=== PATIENT | female | born 2005 | race Caucasian/White ===

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

== ENCOUNTER 2023-06-20 16:08 | Emergency (ER) | payer BC, SELFPAY ==
[2023-06-20 16:21] VITALS: BP 118/71; PULSE 86; RESP 20; TEMP 36.7; O2SAT 100
--- NOTE | 2023-06-20 16:26 | ED.ABDPAIN ---
HPI - Abdominal Pain General Chief Complaint: Abdominal Pain Stated Complaint: stomach pain Time Seen by Provider: 06/20/23 16:25 Source: patient, RN notes reviewed and old records reviewed Mode of arrival: ambulatory Limitations: no limitations History of Present Illness HPI narrative: 18-year-old female presents to [facility] with complaints abdominal pain and nausea that started last p.m. Patient seems actual vomiting or diarrhea. Patient denies urinary symptoms you patient denies vaginal discharge or concerns for STDs at this time. Patient denies possibility of . MD elicited complaint: abdominal pain Pertinent past history: none Onset (ago): day(s) (1) Pain Consistency: intermittent Location: RUQ Severity: mild Quality: cramping Radiation: none Migration to: no migration Exacerbating factors: nothing Relieving factors: nothing Related Data Allergies Allergy/AdvReac Type Severity Reaction Status Date / Time sulfamethoxazole Allergy Severe unknown Verified 06/20/23 16:27 trimethoprim Allergy Severe unknown Verified 06/20/23 16:27 Review of Systems Constitutional: Constitutional: Reports no additional constitutional complaints Eyes: Eyes: Reports no additional eye complaints ENT: Reports system reviewed and no additional complaints, except as documented Cardiovascular: Cardiovascular: Reports no additional cardiovascular complaints Respiratory: Respiratory: Reports no additional respiratory complaints Gastrointestinal: Gastrointestinal: Reports as per HPI, Reports abdominal pain, Denies constipation, Denies heartburn, Denies fecal incontinence, Denies diarrhea, Denies loose stools, Reports nausea and Denies vomiting Genitourinary: Genitourinary: Denies abnormal menses, Denies abnormal vaginal bleeding, Denies amenorrhea, Denies metrorrhagia, Denies hematuria, Denies pelvic pain, Denies urinary incontinence, Denies urinary urgency and Denies vaginal discharge Neurologic: Reports system reviewed and no additional complaints, except as documented PMFSH Comments At the time of my signature, I reviewed and agree with the nursing past medical, surgical, social, and family history. There is no relevant family history pertinent to the patient complaint. Exam Const: General: cooperative, healthy appearing, no acute distress and well nourished Nutritional Appearance: well nourished Orientation/consciousness: patient oriented x3 Limitations: no limitations HENMT: Head: normal to inspection and normocephalic Ears: external ears normal, TM's normal bilaterally, mastoids normal and Abnormal EAC present Face/Nose/Sinus: normal facial exam Face and sinus: normal facial exam Mouth: Yes Normal oral and palatal mucosa present, Yes oropharynx normal and Yes moist mucous membranes Throat: posterior oropharynx normal, tonsils normal, uvula midline and no uvular edema Eyes: General: appearance normal, both eyes and all related structures Sclera: sclerae normal Pupils: Equal, round and reactive pupils present Resp: Effort & Inspection: normal respiratory effort, able to speak in complete sentences, no audible wheezes, no cough, no respiratory distress and no retractions Auscultation: clear to auscultation bilaterally, no crackles, no rales, no rhonchi and no wheezes Cardio: Rate: regular rate Rhythm: regular rhythm GI: Inspection: normal to inspection and non-distended GI Palp: Yes abdominal tenderness (RUQ), Yes Soft to palpation, No Hepatomegaly present, No Splenomegaly present and No Rebound tenderness present Percussion: Yes normal to percussion Auscultation: normal bowel sounds : General: No CVA tenderness and Yes no CVA tenderness Back/Spine/Pelvis: Back: no CVA tenderness Skin: General skin exam: normal color and no rashes or lesions noted Neuro: General: patient oriented x3 Cranial nerves: Yes Equal, round and reactive pupils present Psych: Appearance: grossly normal Course Course Emergency Cours
== END 2023-06-20 16:50 | disposition home or self-care (01) ==
PROVIDERS: Emergency Provider Registered Nurse; PCP Pediatrics
DX: N30.90 Cystitis, unspecified without hematuria (principal)
CPT/HCPCS: 81003; 87077; 87086; 87186; 99213; G0463

== ENCOUNTER 2024-03-29 08:42 | Emergency (ER) | payer BC, SELFPAY ==
[2024-03-29 09:06] VITALS: BP 99/63; PULSE 75; RESP 20; TEMP 36.8; O2SAT 97
[2024-03-29 09:36] LABS: EDSTREPNEGPOS1 Negative
--- NOTE | 2024-03-29 10:09 | ED.URI ---
HPI - URI/Sore Throat General Chief Complaint: Upper Respiratory Infection Stated Complaint: sore throat Time Seen by Provider: 03/29/24 09:15 Source: patient, RN notes reviewed and old records reviewed Mode of arrival: ambulatory Limitations: no limitations History of Present Illness HPI Narrative: 19-year-old female to Express Care for complaint sore throat, nasal congestion for 4 days and cough since yesterday. Patient denies difficulty swallowing, shortness of breath, hoarseness ear pain, chest pain, fever, GI complaints, pertinent medical history. Patient able to tolerate fluids by mouth. Patient resting uncomfortably in exam room; appears tired and acutely ill. Respirations even and nonlabored. Patient in no acute distress. Related Data Allergies Allergy/AdvReac Type Severity Reaction Status Date / Time sulfamethoxazole Allergy Severe unknown Verified 06/20/23 16:27 trimethoprim Allergy Severe unknown Verified 06/20/23 16:27 Review of Systems Review of Systems: All systems reviewed & are unremarkable except as noted in HPI and below Constitutional: Constitutional: Reports no additional constitutional complaints Eyes: Eyes: Reports no additional eye complaints ENT: Reports as per HPI, Reports nasal congestion and Reports sore throat Cardiovascular: Cardiovascular: Reports no additional cardiovascular complaints, Denies chest pain and Denies dyspnea Respiratory: Respiratory: Reports no additional respiratory complaints, Reports cough and Denies dyspnea Musculoskeletal: Musculoskeletal: Reports no additional musculoskeletal complaints Neurologic: Reports system reviewed and no additional complaints, except as documented Psychiatric: Psychiatric: Reports no additional psychiatric complaints PMFSH Comments At the time of my signature, I reviewed and agree with the nursing past medical, surgical, social, and family history. There is no relevant family history pertinent to the patient complaint. Exam Const: General: cooperative, no acute distress, alert, ill appearing acutely, tired appearing, uncomfortable and well nourished Nutritional Appearance: well nourished Orientation/consciousness: patient oriented x3 Limitations: no limitations HENMT: Head: normal to inspection Ears: external ears normal and TM abnormal with fluid behind the TM bilateral Face/Nose/Sinus: Normal external nose present, Abnormal mucous membranes and turbinates present boggy bilateral and erythematous bilateral, normal facial exam, No erythema and No edema Face and sinus: normal facial exam, no erythema and no edema Mouth: Yes Normal oral and palatal mucosa present Throat: posterior oropharynx abnormal erythema and postnasal drainage Eyes: General: appearance normal, both eyes and all related structures Neck: Neck: normal visual inspection, full ROM and no meningeal signs Lymphatic: no lymphadenopathy noted and no lymphedema noted Chest: Chest palpation & inspection: normal inspection of the chest Resp: Effort & Inspection: normal respiratory effort and able to speak in complete sentences Auscultation: clear to auscultation bilaterally Cardio: Jugular venous distension: no JVD Rate: regular rate Rhythm: regular rhythm Back/Spine/Pelvis: Cervical Spine: cervical ROM normal Skin: General skin exam: normal color, no rashes or lesions noted and turgor normal Neuro: General: patient oriented x3, gait normal, moves all extremities and no meningeal signs Speech: normal speech Gait exam (Neuro): Normal gait present Extrem: General: normal to inspection, full ROM and capillary refill normal Psych: Appearance: grossly normal and well kempt Course Course Emergency Course: Some parts of this dictation were generated by voice recognition software and may contain typographical and/or grammatical inaccuracies. Level of Care: Express Care Visit Vital Signs Vital signs: Vital Signs Temperature 36.8 C 03/29/24 09:06 Pulse Rate 7
== END 2024-03-29 09:45 | disposition home or self-care (01) ==
PROVIDERS: Emergency Provider Nurse Practitioner Family
DX: J02.9 Acute pharyngitis, unspecified (principal)
CPT/HCPCS: 87081; 87880; 99213; G0463

== ENCOUNTER 2024-07-23 15:15 | Emergency (ER) | payer BC, SELFPAY ==
[2024-07-23 16:18] VITALS: BP 110/73; PULSE 87; RESP 18; TEMP 36.8; O2SAT 100
[2024-07-23 16:47] LABS: EDSTREPNEGPOS1 Negative (Negative)
--- NOTE | 2024-07-23 17:07 | ED.URI ---
HPI - URI/Sore Throat General Chief Complaint: Upper Respiratory Infection Stated Complaint: sore throat, laura Time Seen by Provider: 07/23/24 17:03 Source: patient and RN notes reviewed Mode of arrival: ambulatory Limitations: no limitations History of Present Illness HPI Narrative: Patient presents today with a 4 day history of sore throat, nasal congestion, and cough. Denies shortness of breath or fever. Currently rates her pain 6/10 and has been taking sign next with mild relief. Home COVID testing has been negative. Related Data Home Medications ?Medication ?Instructions ?Recorded ?Confirmed ?Last Taken ?Type No Home Medications 07/23/24 07/23/24 Unknown History Allergies Allergy/AdvReac Type Severity Reaction Status Date / Time sulfamethoxazole Allergy Severe unknown Verified 07/23/24 16:18 trimethoprim Allergy Severe unknown Verified 07/23/24 16:18 Review of Systems Review of Systems: CONSTITUTIONAL: Denies body aches, fever, chills, or sweats. EYES: Denies visual changes, redness, or discharge. ENT: Denies rhinorrhea, or otalgia.+ congestion, sore throat CARDIOVASCULAR: Denies chest pain, palpitations, or edema. RESPIRATORY: Denies dyspnea.+ cough GASTROINTESTINAL: Denies abdominal pain, nausea, vomiting, or diarrhea. GENITOURINARY: Denies dysuria or hematuria. SKIN: Denies rash, itching, or wounds. MUSCULOSKELETAL: Denies back pain, joint pain, or myalgia. NEUROLOGIC: Denies headache, numbness, tingling, or weakness. PSYCH: Denies depression or anxiety. PMFSH Comments At time of signature, I have reviewed and agree with nursing past medical, surgical, social and family history unless otherwise noted. Please see nursing chart for further information. There is no relevant family history pertinent to the presenting complaint Exam Narrative: GENERAL: Mildly ill-appearing, well-nourished, and in no acute distress. HEAD: Normocephalic, atraumatic. EYES: EOMI. No redness or drainage. Conjunctivae normal. ENT: Mucous membranes pink and moist. Nares congestive. No rhinorrhea. TMs normal bilaterally. Throat mildly erythematous without edema or exudate. Uvula midline. NECK: Normal AROM. Supple. No lymphadenopathy. CHEST: No respiratory distress. Clear to auscultation. HEART: Regular rate and rhythm. No murmur appreciated. EXTREMITIES: Normal range of motion. No edema. SKIN: Warm, dry, no rash. Capillary refill normal. Normal skin turgor. NEURO: No focal deficits. Alert and oriented x3. Gait steady. PSYCH: Normal affect. No signs of depression or anxiety. Course Course Level of Care: Express Care Visit Vital Signs Vital signs: Vital Signs Temperature 98.2 F 07/23/24 16:18 Pulse Rate 87 07/23/24 16:18 Respiratory Rate 18 07/23/24 16:18 Blood Pressure 110/73 07/23/24 16:18 Pulse Oximetry 100 07/23/24 16:18 Temperature 98.2 F 07/23/24 16:18 Pulse Rate 87 07/23/24 16:18 Respiratory Rate 18 07/23/24 16:18 Blood Pressure 110/73 07/23/24 16:18 Pulse Oximetry 100 07/23/24 16:18 Reviewed MDM - URI/Sore Throat MDM Narrative Medical decision making narrative: Rapid strep negative. Culture pending. Patient declines testing for COVID or influenza. Symptoms likely viral in etiology. Discussed [id number] medication use and duration of illness. No prescription medications indicated at this time. Anticipatory guidance given. Differential Diagnosis Differential diagnosis: Likely upper respiratory infection, viral infection, influenza, pharyngitis and other (Strep throat, COVID) Lab Data Attestation: I reviewed the patient's lab results. Labs: Lab Results 07/23/24 Range/Units 16:44 POC Grp A Strep Screen Negative (Negative) Critical Care Time Critical Care Time Critical Care Time: No Discharge Plan Discharge Clinical Impression: Upper respiratory infection Qualifiers: URI type: unspecified URI Qualified Code(s): J06.9 - Acute upper respiratory infection, unspecified Patient Disposition: Home, Self-Care Condition: Stable Instructions: Upper Respiratory Infection (DC) Additional Instructions: Your rapid strep swab was negative today at [facility]. You will be notified in a few days if the culture comes back positive for strep, and appropriate antibiotics will be called in for you at that time. Your symptoms are likely due to a viral illness, which is not treated with antibiotics. Viral symptoms can be present for up to 7-10 days. Take Tylenol or ibuprofen for fever or pain. Rest and stay hydrated. Follow up with your PCP in 7 days if symptoms are not improving. Go to the ER immediately if you have any difficulty breathing or swallowing. Patient Language: Welsh Prescriptions: No Action No Home Medications Follow-up/Referrals: PHYSICIAN,PRE ASSEMBLY WIRER [Primary Care Provider] - Time of Disposition: 17:09
== END 2024-07-23 17:11 | disposition home or self-care (01) ==
PROVIDERS: Emergency Provider Nurse Practitioner
DX: J06.9 Acute upper respiratory infection, unspecified (principal)
CPT/HCPCS: 87081; 87880; 99213; G0463

== ENCOUNTER 2024-09-09 15:29 | Emergency (ER) | payer BC, SELFPAY ==
[2024-09-09 15:39] VITALS: BP 107/70; PULSE 78; RESP 18; TEMP 36.9; O2SAT 100
--- NOTE | 2024-09-09 15:54 | ED_ITS ---
HPI - Dental/Oral General Chief complaint: Dental/Oral Stated complaint: DENTAL PAIN/SWELLING Time Seen by Provider: 09/09/24 15:54 Source: patient Mode of arrival: ambulatory Limitations: no limitations History of Present Illness HPI Narrative: 19-year-old female presents with complaint of right lower dental pain. Thinks that a cavity fell out and is causing pain. Has appointment September 14 with her dentist. Afebrile. All systems reviewed and negative except as noted above. Related Data Home Medications ?Medication ?Instructions ?Recorded ?Confirmed ?Last Taken ?Type No Home Medications 07/23/24 07/23/24 Unknown History Allergies Allergy/AdvReac Type Severity Reaction Status Date / Time sulfamethoxazole Allergy Severe unknown Verified 09/09/24 15:48 trimethoprim Allergy Severe unknown Verified 09/09/24 15:48 Review of Systems Review of Systems: CONSTITUTIONAL: Denies fever, chills, or sweats. EYES: Denies visual changes, redness, or discharge. ENT: Denies rhinorrhea, congestion, sore throat, or otalgia. Reports right lower dental pain. CARDIOVASCULAR: Denies chest pain, palpitations, or edema. RESPIRATORY: Denies cough or dyspnea. GASTROINTESTINAL: Denies abdominal pain, nausea, vomiting, or diarrhea. GENITOURINARY: Denies dysuria or hematuria. SKIN: Denies rash or itching. MUSCULOSKELETAL: Denies back pain, joint pain, or myalgia. NEUROLOGIC: Denies headache, numbness, or weakness. PSYCHIATRIC: Denies anxiety or depression. All other systems reviewed are negative, except as documented in HPI. PMFSH Comments At time of signature, agree with nursing past medical, surgical, social and family history. There is no relevant family history pertinent to the presenting complaint. Exam Narrative: GENERAL: This is a well-nourished, well-developed patient, in no apparent distress. HEAD: normocephalic, atraumatic. EYES: PERRL. Sclera clear/white. Vision is grossly intact. EARS: External ears normal NOSE: External nose normal MOUTH: No dental abnormality noted. NECK: Neck supple, non-tender without lymphadenopathy, masses or thyromegaly. CARDIOVASCULAR: Regular rate and rhythm without murmurs, gallops, or rubs. RESPIRATORY: Clear to auscultation. Breath sounds equal bilaterally. No wheezes, rales, or rhonchi. SKIN: warm, Dry, intact with no suspicious lesions or rash, good texture and turgor. NEURO: awake, alert, and oriented to person, place and time. There were no obvious focal neurologic abnormalities. EXTREMITIES: No joint tenderness, effusion, or edema noted. Course Course Level of Care: Express Care Visit Vital Signs Vital signs: Vital Signs Temperature 36.9 C 09/09/24 15:39 Pulse Rate 78 09/09/24 15:39 Respiratory Rate 18 09/09/24 15:39 Blood Pressure 107/70 09/09/24 15:39 Pulse Oximetry 100 09/09/24 15:39 Temperature 36.9 C 09/09/24 15:39 Pulse Rate 78 09/09/24 15:39 Respiratory Rate 18 09/09/24 15:39 Blood Pressure 107/70 09/09/24 15:39 Pulse Oximetry 100 09/09/24 15:39 Oxygen Delivery Room Air 09/09/24 15:41 Reviewed MDM - Dental/Oral MDM Narrative Medical decision making narrative: Will treat patient with antibiotic for dental pain. Patient has appoint with [facility] September 14. Patient is well-appearing, nontoxic. Please be advised this is a medical document. It is intended for [id number] communication. It is written in medical language and may contain unfamiliar abbreviations or verbiage. Medical documents are intended to carry relevant information, facts as evident, and the clinical opinion of the practitioner at the time of the encounter. This report may have been done utilizing a voice recognition system. Attempts have been made to correct errors. However, there may be uncorrected grammatical, spelling, and recognition errors present. The file time of this note does not necessarily represent the time of service. Differential Diagnosis Differential diagnosis: Likely dental caries, toothache, dental abscess and fracture of tooth Discharge Plan Discharge Clinical Impression: Pain, dental Patient Disposition: Home, Self-Care Condition: Stable Instructions: Antibiotic Form, Toothache (ED) Additional Instructions: Take antibiotic as prescribed until gone. Alternate between ibuprofen and Tylenol every 4 hours to treat pain. Follow-up with dentist at scheduled appointment. Patient Language: Lithuanian Prescriptions: New amoxicillin 875 mg tablet 875 mg PO Q12H 10 Days Qty: 20 0RF ibuprofen 600 mg tablet 600 mg PO Q6H PRN (Reason: pain) Qty: 30 0RF No Action No Home Medications Follow-up/Referrals: PHYSICIAN,PRINCIPAL INVESTIGATOR [Primary Care Provider] - Time of Disposition: 15:59
== END 2024-09-09 16:03 | disposition home or self-care (01) ==
PROVIDERS: Emergency Provider Nurse Practitioner Family
DX: K08.89 Other specified disorders of teeth and supporting structures (principal)
CPT/HCPCS: 99213; G0463

== ENCOUNTER 2024-12-28 09:44 | Emergency (ER) | payer BC, SELFPAY ==
[2024-12-28 09:52] VITALS: BP 111/72; PULSE 75; RESP 16; TEMP 36.1; O2SAT 100
[2024-12-28 10:07] LABS: EDUAAPPEAR Cloudy; EDUABILI Negative (Negative); EDUABLOOD 1+ (Negative); EDUACOLOR1 Light/Pale; EDUAGLUCOSE Negative (Negative); EDUAKETONE Negative (Negative); EDUALEUKO 3+ (Negative); EDUANITRATE Positive (Negative); EDUAPH 6.5; EDUAPROTEIN Negative (Negative); EDUASPGRAVITY 1.015; EDUAUROBILI 0.2
--- NOTE | 2024-12-28 10:11 | ED_ITS ---
HPI - Female Genitourinary General Chief complaint: Urogenital-Female Stated complaint: UTI SYMPTOMS Time Seen by Provider: 12/28/24 10:05 Source: patient and RN notes reviewed Mode of arrival: ambulatory Limitations: no limitations History of Present Illness HPI Narrative: 19-year-old female presents [facility] complaining of urinary symptoms for 3 days. Patient reports having increased frequency and low back pain. Patient denies any fevers, abdominal pain, body aches, chills, nausea, vomiting, diarrhea, dysuria. Patient has not taken anything [id number] for symptoms. 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 Patient says she has a history of a neurogenic bladder use to straight cath herself but states she knows longer needs to she is able to void without issues. Related Data Allergies Allergy/AdvReac Type Severity Reaction Status Date / Time sulfamethoxazole Allergy Severe unknown Verified 12/28/24 10:01 trimethoprim Allergy Severe unknown Verified 12/28/24 10:01 Review of Systems Review of Systems: CONSTITUTIONAL: Denies fever, chills, body aches, or sweats. EYES: Denies visual changes, redness, or discharge. ENT: Denies rhinorrhea, congestion, sore throat, or otalgia. CARDIOVASCULAR: Denies chest pain, palpitations, or edema. RESPIRATORY: Denies cough or dyspnea. GASTROINTESTINAL: Denies abdominal pain, nausea, vomiting, or diarrhea. GENITOURINARY: Positive for increased frequency. Negative for hematuria, vaginal discharge, vaginal bleeding, pelvic pain, and dysuria. SKIN: Denies rash or itching. MUSCULOSKELETAL: Positive for low back pain. Negative for joint pain, or myalgia. NEUROLOGIC: Denies headache, numbness, or weakness. PSYCHIATRIC: Denies anxiety or depression. All other systems reviewed are negative, except as documented in HPI. PMFSH Comments At the time of my signature, I reviewed and agree with the nursing past medical, surgical, social, and family history. There is no relevant family history pertinent to the patient complaint. Exam Narrative: GENERAL: This is a well-nourished, well-developed adult, in no apparent distress. They are non ill-appearing, nontoxic appearing. HEAD: normocephalic, atraumatic. EYES: Sclera clear/white. Vision is grossly intact. Conjunctiva normal bilaterally. Extraocular movements intact. EARS: External ears normal,Hearing grossly intact. NOSE: External nose normal THROAT: Mucous membranes moist NECK: Normal range of motion CARDIOVASCULAR: Regular rate and rhythm. Normal S1-S2. No clicks, gallops, rubs, or murmurs. RESPIRATORY: Respiratory rate normal, respiratory effort nonlabored, no respiratory distress. Lungs are clear to auscultation throughout. Lung sounds equal bilaterally. No adventitious lung sounds GASTROINTESTINAL: Abdomen soft, flat, mild tenderness to palpation to suprapubic region, nondistended. Bowel sounds are active. No hepato-splenomegaly, or palpable masses. No guarding or rigidity. No rebound tenderness. SKIN: warm, Dry, intact with no suspicious lesions or rash, good texture and turgor. NEURO: awake, alert, and oriented to person, place and time. There were no obvious focal neurologic abnormalities. EXTREMITIES: No joint tenderness, effusion, or edema noted. BACK: Nontender without deformity. No CVA tenderness. Course Course Emergency Course: Portions of this record may have been created with voice recognition software Level of Care: Express Care Visit Vital Signs Vital signs: Vital Signs Temperature 97 F L 12/28/24 09:52 Pulse Rate 75 12/28/24 09:52 Respiratory Rate 16 12/28/24 09:52 Blood Pressure 111/72 12/28/24 09:52 Pulse Oximetry 100 12/28/24 09:52 Temperature 97 F L 12/28/24 09:52 Pulse Rate 75 12/28/24 09:52 Respiratory Rate 16 12/28/24 09:52 Blood Pressure 111/72 12/28/24 09:52 Pulse Oximetry 100 12/28/24 09:52 MDM - Female Genitourinary MDM Narrative Medical decision making narrative: Urine dipstick showed evidence of urinary tract infection with positive leukocytes, nitrates, and blood. Urine culture pending. Patient is allergic to Bactrim, will treat with cephalexin. Discussed physical exam findings. Advised supportive measures and signs/symptoms to go to the ER. Pt is appropriate for outpt treatment and f/u. Differential Diagnosis Differential diagnosis: Likely urinary tract infection, cystitis and other (Pyelonephritis) Lab Data Attestation: I reviewed the patient's lab results. Labs: Lab Results 12/28/24 Range/Units 10:04 POC Urine Color Light/pale POC Urine Clarity Cloudy POC Urine pH 6.5 POC Ur Specif Elaine 1.015 POC Urine Protein Negative (Negative) POC Ur Glucose (UA) Negative (Negative) POC Urine Ketones Negative (Negative) POC Urine Blood 1+ (Negative) POC Urine Nitrite Positive (Negative) POC Urine Bilirubin Negative (Negative) POC Urine Urobilinogen 0.2 POC U Leukocyte Esteras 3+ (Negative) Discharge Plan Discharge Clinical Impression: Urinary tract infection Qualifiers: Urinary tract infection type: site unspecified Hematuria presence: with hematuria Qualified Code(s): N39.0 - Urinary tract infection, site not specified Patient Disposition: Home Condition: Stable Instructions: Antibiotic Form, Urinary Tract Infection in Women (ED) Additional Instructions: Take the antibiotic as prescribed The urine will be sent of for a culture to identify what type of bacteria is causing your infection. If the culture shows that the antibiotic will not get rid of your infection, you will be notified and a new antibiotic will be called in for you. Increase water intake you will need to follow up with your PCP 3-5 days. Go to the ER for any worsening symptoms, abdominal pain, fevers, nausea, vomiting, or any other concerns Patient Language: Thai Prescriptions: New cephalexin 500 mg capsule 500 mg PO BID 7 Days Qty: 14 0RF Follow-up/Referrals: PHYSICIAN,JUVENILE JUSTICE OFFICER [Primary Care Provider] - Time of Disposition: 10:10
== END 2024-12-28 10:12 | disposition home or self-care (01) ==
DX: N39.0 Urinary tract infection, site not specified (principal)
CPT/HCPCS: 81003; 87077; 87086; 87186; 99213; G0463

== ENCOUNTER 2025-02-22 11:26 | Emergency (ER) | payer BC, SELFPAY ==
--- NOTE | ~2025-02-22 | XR_ITS ---
EXAMINATION: XR ankle LT min 3V DATE: 02/22/2025 12:09 INDICATION: Lateral left ankle pain TECHNIQUE: Anteroposterior, oblique, mortise, and lateral views of the left ankle were obtained. COMPARISON: None. FINDINGS: Alignment is normal. No fracture. Joint spaces are normal. Soft tissues are unremarkable. No left ank le joint effusion. IMPRESSION: 1. Negative left ankle radiographs. Reviewed, dictated and finalized at location A.
[2025-02-22 11:38] VITALS: BP 106/62; PULSE 67; RESP 16; TEMP 36.6; O2SAT 100
--- NOTE | 2025-02-22 12:14 | ED_ITS ---
HPI - Extremity Injury (Lower) General Chief Complaint: Extremity Injury, Lower Stated Complaint: L ANKLE PAIN/SWELLING Time Seen by Provider: 02/22/25 11:50 Source: patient and RN notes reviewed Mode of arrival: ambulatory Limitations: no limitations History of Present Illness HPI Narrative: 20-year-old female Presents [facility] complaining left lateral ankle pain for approximately 6 days. Patient denies any falls or apparent injuries. 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 Patient's has been taking Tylenol or ibuprofen with some relief. Patient denies any numbness, tingling or any other injuries. Patient says she was on ciprofloxacin approximately 2 months ago for UTI. Patient denies any pain to her Achilles. He is able to ambulate on her left foot. Patient denies any significant past medical history. Related Data Allergies Allergy/AdvReac Type Severity Reaction Status Date / Time sulfamethoxazole Allergy Severe unknown Verified 12/28/24 10:01 trimethoprim Allergy Severe unknown Verified 12/28/24 10:01 Review of Systems Review of Systems: CONSTITUTIONAL: Denies fever, chills, or sweats. EYES: Denies visual changes, redness, or discharge. ENT: Denies rhinorrhea, congestion, sore throat, or otalgia. CARDIOVASCULAR: Denies chest pain, palpitations, or edema. RESPIRATORY: Denies cough or dyspnea. GASTROINTESTINAL: Denies abdominal pain, nausea, vomiting, or diarrhea. GENITOURINARY: Denies dysuria or hematuria. SKIN: Denies rash, wound, or itching. MUSCULOSKELETAL: Denies back pain, joint pain, or myalgia. Positive for left ankle pain and swelling. NEUROLOGIC: Denies headache, numbness, or weakness. PSYCHIATRIC: Denies anxiety or depression. All other systems reviewed are negative, except as documented in HPI. PMFSH Comments At the time of my signature, I reviewed and agree with the nursing past medical, surgical, social, and family history. There is no relevant family history pertinent to the patient complaint. Exam Narrative: GENERAL: This is a well-nourished, well-developed adult, in no apparent distress. They are non ill-appearing, nontoxic appearing. HEAD: normocephalic, atraumatic. EYES: Sclera clear/white. Vision is grossly intact. Conjunctiva normal. Extraocular movement intact. EARS: External ears normal Hearing grossly intact. NOSE: External nose normal THROAT: Mucous membranes moist NECK: Neck supple CARDIOVASCULAR: Regular rate and rhythm RESPIRATORY: Respiratory rate normal, respiratory effort nonlabored, no respiratory distress NEURO: awake, alert, and oriented to person, place and time. There were no obvious focal neurologic abnormalities. EXTREMITIES: Left ankle: No obvious deformity. Mild swelling the left lateral ankle with slight bruising. Mild tenderness through full range of motion. Tenderness to palpation to left lateral ankle. Capillary refill less than 3 seconds. Left pedal Pulse 2 +palpable. Normal sensation. Neurovascular status intact distal injury. Patient able to wiggle her toes. Negative Fulton's test. BACK: Nontender without deformity. Course Course Emergency Course: Portions of this record may have been created with voice recognition software Level of Care: Express Care Visit Vital Signs Vital signs: Vital Signs Temperature 97.8 F 02/22/25 11:38 Pulse Rate 67 02/22/25 11:38 Respiratory Rate 16 02/22/25 11:38 Blood Pressure 106/62 02/22/25 11:38 Pulse Oximetry 100 02/22/25 11:38 Temperature 97.8 F 02/22/25 11:38 Pulse Rate 67 02/22/25 11:38 Respiratory Rate 16 02/22/25 11:38 Blood Pressure 106/62 02/22/25 11:38 Pulse Oximetry 100 02/22/25 11:38 Reviewed MDM - Extremity Injury (Lower) MDM Narrative Medical decision making narrative: X-ray left ankle shows no evidence of fracture or acute findings. Likely left ankle sprain. Negative Fulton's test, low suspicion of Achilles injury. Offered patient Antony wrap and she said she has not at home, she has a ankle splint that she has been wearing. Discussed physical exam findings. Advised supportive measures and signs/symptoms to go to the ER. Pt is appropriate for outpt treatment and f/u. Differential Diagnosis Differential diagnosis: Likely ankle sprain and strain and other (Achilles tendon rupture, Achilles tendinitis, tendinitis, ankle fracture, foot fracture) Imaging Data Radiologist's impression: ITS Impressions Ankle X-Ray 02/22/25 12:19 IMPRESSION: 1. Negative left ankle radiographs. Critical Care Time Critical Care Time Critical Care Time: No Discharge Plan Discharge Clinical Impression: Ankle pain, left Qualifiers: Chronicity: acute Qualified Code(s): M25.572 - Pain in left ankle and joints of left foot Patient Disposition: Home Condition: Stable Instructions: Ankle Sprain (ED) Additional Instructions: The x-ray left ankle is negative for any fracture or acute findings. Rest and elevate the leg; bear weight as tolerated Apply ice 15-20 minute intervals several times a day Keep it wrapped with ANTONY or use a soft ankle splint Motrin 600mg -800mg every 6-8 hours, alternate with Tylenol 1000mg every 6-8 hours as needed Follow up with your primary care provider or an orthopedist in 1-2 weeks especially pain persists. Patient Language: Georgian Prescriptions: No Action cephalexin 500 mg capsule 500 mg PO BID 7 Days Qty: 14 0RF ciprofloxacin HCl [Cipro] 250 mg tablet 250 mg PO Q12H 3 Days Qty: 6 0RF Follow-up/Referrals: PHYSICIAN,BACK CLOSER [Primary Care Provider] - Reinier Chapman MD [Physician] - Time of Disposition: 12:33
== END 2025-02-22 12:38 | disposition home or self-care (01) ==
DX: M25.572 Pain in left ankle and joints of left foot (principal)
CPT/HCPCS: 73610; 99213; G0463

== ENCOUNTER 2025-04-14 15:58 | Emergency (ER) | payer BC, SELFPAY ==
--- NOTE | 2025-04-14 16:00 | ED.UPPEXIN ---
HPI - Extremity Injury (Upper) General Stated Complaint: left should sprain checked Time Seen by Provider: 04/14/25 16:42 Source: patient and RN notes reviewed Mode of arrival: ambulatory Limitations: no limitations History of Present Illness HPI narrative: 20-year-old female presents with concern for left shoulder pain. 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 She reports she was the emergency room and was evaluated and diagnosed with a sprained shoulder. However she forgot to get a work note. Reports she is scheduled off for the next 3 days. She was prescribed ibuprofen has been using ice. MD complaint: injury to: left and shoulder Related Data Home Medications ?Medication ?Instructions ?Recorded ?Confirmed ?Last Taken ?Type ibuprofen 600 mg tablet mg 04/14/25 Unknown History Allergies Allergy/AdvReac Type Severity Reaction Status Date / Time sulfamethoxazole Allergy Severe unknown Verified 04/14/25 16:11 trimethoprim Allergy Severe unknown Verified 04/14/25 16:11 Review of Systems Review of Systems: CONSTITUTIONAL: Denies malaise, chills, sweats, or fever. SKIN: Denies rash or itching, open skin, laceration, abrasion, redness, warmth, swelling. MUSCULOSKELETAL: Reports left shoulder pain NEUROLOGIC: Denies numbness, weakness All systems reviewed & are unremarkable except as noted in HPI and below PMFSH Comments At time of signature, agree with nursing past medical, surgical, social and family history. There is no relevant family history pertinent to the presenting complaint Exam Narrative: GENERAL: Well-appearing, well-nourished, and in no acute distress. HEAD: Normocephalic, atraumatic. EYES: PERRLA, conjunctivae clear NECK: Supple. CHEST: Speaks in full sentences. No respiratory distress. HEART: Regular rate and rhythm. Normal and equal peripheral pulses. EXTREMITIES: Left upper extremity has grossly normal strength and sensation, grossly normal range of motion. No edema or ecchymosis. Skin warm, dry, pink. Capillary refill less than 3 seconds. SKIN: Warm, dry, no rash. NEURO: Alert and oriented x3. PSYCH: Normal mood and affect Course Course Emergency Course: Patient is aware of diagnosis, understands and agrees to treatment plan. Anticipatory guidance given. Patient agrees to follow-up as directed and is aware of reasons to seek care at the emergency department. Portions of this record may have been created with voice recognition software Level of Care: Express Care Visit Vital Signs Vital signs: Reviewed. MDM - Extremity Injury (Upper) MDM Narrative Medical decision making narrative: Patients pain is consistent with musculoskeletal etiology. No signs of neurological or vascular compromise on exam. Compartments and tissues are soft without signs of compartment syndrome. Pain is felt appropriate for further evaluation on an outpatient basis. Critical Care Time Critical Care Time Critical Care Time: No Discharge Plan Discharge Clinical Impression: Left shoulder pain Patient Disposition: Home Condition: Stable Instructions: Shoulder Sprain (ED) Patient Language: Saudi Arabian Prescriptions: No Action cephalexin 500 mg capsule 500 mg PO BID 7 Days Qty: 14 0RF ciprofloxacin HCl [Cipro] 250 mg tablet 250 mg PO Q12H 3 Days Qty: 6 0RF Follow-up/Referrals: UNKNOWN,DOCTOR [Primary Care Provider] Stand Alone Forms: Work/School Release IP Time of Disposition: 16:49
--- OUTSIDE RECORDS SUMMARY | 2025-04-14 16:00 | XMS_ITS | Encounter Summary ---
Author Organization [facility] [employer] Address [address] [place] [address] Care Team Providers Care Phototypesetting Equipment Monitor Name Role Phone Jeremías Sparks MD Primary Care Provider [phone] Reason for Visit * Reason Onset Date Comments Letter for School or Work 03/10/2017 Encounter Details Date Type Department Care Team (Late st Contact Info) Description 03/10/2017 Telephone [facility] Pediatrics - Endocrinology [address] [place] [id number] Donald Sainz MD [address] [place] [phone] Letter for School or Work Social History Tobacco Use Types Packs/Day Years Used Date Smoking Tobacco: Never Alcohol Use Standard Drinks/Week Comments No 0 (1 standard drink = 0.6 oz pur e alcohol) Comments No Sex and Gender Information Value Date Recorded Sex Assigned at Not on file 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 Mom is requesting a care plan be faxed to school, states pt takes Lantus nightly, no insulin at meals, only advised to test bg once daily. Will fax to [phone], and will update it if need. Mom reports it is difficulty to get pt to test bg, they hope Dr Alistair can talk some sense into her regarding taking care of her diabetes. documented in this encounter Plan of Treatment Not on file documented as of this encounter Visit Diagnoses Not on filedocumented in this encounter Care Teams Phototypesetting Equipment Monitor Relationship Specialty Start Date End Date Jeremías Sparks MD [address] [place], [place] [phone] PCP - General 02/14/11 documented as of this encounter
--- OUTSIDE RECORDS SUMMARY | 2025-04-14 16:00 | XMS_ITS | Encounter Summary ---
Author Organization [facility] [employer] Address [address] [place] [address] Care Team Providers Care Return Agent Airport Name Role Phone Jeremías Sparks MD Primary Care Provider [phone] Reason for Visit * Reason Onset Date Comments MEDICATION REFILL 08/05/2016 Encounter Details Date Type Department Care Team (Late st Contact Info) Description 08/05/2016 Refill [facility] Pediatrics - Endocrinology [address] [place] [id number] Donald Sainz MD [address] [place] [address] MEDICATION REFILL Social History Tobacco Use Types Packs/Day Years Used Date Smoking Tobacco: Never Alcohol Use Standard Drinks/Week Comments No 0 (1 standard drink = 0.6 oz pur e alcohol) Comments No Sex and Gender Information Value Date Recorded Sex Assigned at Not on file 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
--- OUTSIDE RECORDS SUMMARY | 2025-04-14 16:00 | XMS_ITS | Encounter Summary ---
Author Organization [facility] [employer] Address [address] [place] [address] Care Team Providers Care Academic Advisor Name Role Phone Jeremías Sparks MD Primary Care Provider [phone] Reason for Visit * Reason Onset Date Comments General 02/18/2018 Encounter Details Date Type Department Care Team (Late st Contact Info) Description 02/18/2018 Telephone [facility] Pediatrics - Diabetes [facility] [address] [place] [address] Kamar Cox APRN-METAL BED ASSEMBLER [address] [place] [address] General Social History Tobacco Use Types Packs/Day Years Used Date Smoking Tobacco: Never Smokeless Tobacco: Never Alcohol Use Standard Drinks/Week Comments No 0 (1 standard drink = 0.6 oz pur e alcohol) Comments No Sex and Gender Information Value Date Recorded Sex Assigned at Not on file 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 We sent rx on 02/12/18, [facility] by [facility], mom to call [facility]. They joanna have 5 left. Mom to call if she needs a verbal refill. documented in this encounter Plan of Treatment Not on file documented as of this encounter Visit Diagnoses Not on filedocumented in this encounter Care Teams Academic Advisor Relationship Specialty Start Date End Date Jeremías Sparks MD [address] [place] [address] PCP - General 02/14/11 documented as of this encounter
--- OUTSIDE RECORDS SUMMARY | 2025-04-14 16:00 | XMS_ITS | Encounter Summary ---
Author Organization [facility] [employer] Address [address] [place] [address] Care Team Providers Care Barge Worker Name Role Phone Jeremías Sparks MD Primary Care Provider [phone] Reason for Visit * Reason Onset Date Comments Refill Request 01/13/2017 Please refill La ntus. Mother would like to know it they can try the Lantus Pen - Please call in to [facility] Encounter Details Date Type Department Care Team (Late st Contact Info) Description 01/13/2017 Telephone [facility] Pediatrics - Diabetes Mgmt [address] [place] [phone] Donald Sainz MD [address] [place] [phone] Refill Request (Please refill Lantus. 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
--- OUTSIDE RECORDS SUMMARY | 2025-04-14 16:00 | XMS_ITS | Encounter Summary ---
Author Organization [facility] [employer] Address [address] [place] [address] Care Team Providers Care Finisher [employer] Name Role Phone Jeremías Sparks MD Primary Care Provider Reason for Visit * Reason Onset Date Comments MEDICATION REFILL 03/10/2017 Encounter Details Date Type Department Care Team (Late st Contact Info) Description 03/10/2017 Refill [facility] Pediatrics - Endocrinology [address] [place] [phone] Donald Sainz MD [address] [place] [id number] MEDICATION REFILL Social History Tobacco Use Types Packs/Day Years Used Date Smoking Tobacco: Never Alcohol Use Standard Drinks/Week Comments No 0 (1 standard drink = 0.6 oz pur e alcohol) Comments No Sex and Gender Information Value Date Recorded Sex Assigned at Not on file Legal Sex Female 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
--- OUTSIDE RECORDS SUMMARY | 2025-04-14 16:01 | XMS_ITS | Clinical Summary ---
Author Organization [employer] [facility] Address [address] [place] [address] Care Team Providers Care Master Steam Yacht Name Role Phone Jeremías Sparks MD Primary Care Provider [phone] Source Comments [facility],non-owned Affiliates and Associated Physician Practices is amultiple site organization consisting of ambulatory clinics and hospital sitesin [place], [place], [place] and [place]. This disclosure is being madepursuant to the Care Everywhere program and may not contain all information available regarding this patient. Last updated 18.[employer] Allergies Active Allergy Reactions Criticality Noted Date Comments Bactrim Unknown 10/31/2009 Medications * This document contains information received from the source organization and may not represent a complete record from that organization. * Be aware that medications may not be up to date on this document. Alwaysverify current medications with the patient. acetone,urine, (KETOSTIX) strip Use as needed (use when blood sugar is greater than 250 or when ill. ) 100 Strip 3 6 Active methylphenidate CR 54 MG tablet TK 1 T PO QD 0 6 Active BD INSULIN SYRINGE ULTRAFINE 31G X 15/64 0.3 ML syringeIndication s:Hyperglycemia,C hemotherapy-induc ed diabetes mellitus (HCC) Please give 6 mm syringe with 1/2 unit markings. Use for injections once daily. 100 Each 8 Active GLUCAGON EMERGENCY injectionIndicati ons:Hyperglycemia ,Chemotherapy-ind uced diabetes mellitus (HCC) Inject 1 mg into muscle as needed 2 kit 2 0 Active insulin glargine (LANTUS SOLOSTAR) pen INJECT 11 UNITS AT BEDTIME OR DIRECTED 15 mL 4 0 Active Insulin Pen Needle (BD PEN NEEDLE PERICO U/F) 32G X 4 MM MISC Use 1 syringe 4 times daily 200 Each 11 0 Active cetirizine (ZYRTEC) 10 MG tablet TK 1 T PO QD 9 Active nitrofurantoin macrocrystal (MACRODANTIN) 100 MG capsule Take 1 capsule by mouth at bedtime 30 capsule 11 0 Active blood glucose (Quantum4D CONTOUR NEXT TEST) test strip Use to test blood sugar 5-9 times daily 600 strip 3 1 Active Blood Glucose Monitoring Suppl (Intervention Insights NEXT EZ MONITOR) w/Device KIT Use 1 Each as directed Use to test blood sugar 5-9 times daily 1 kit 1 Active Microlet Lancets MISCIndications:H yperglycemia Use 1 Each as directed To check blood sugars 5-7 times daily 600 Each 3 1 Active oxybutynin CR 24hr (DITROPAN XL) 15 MG tablet Take 1 (one) tablet by mouth once daily 90 tablet 1 Active Active Problems Patient Care Coordination No te Formatting of this note migh t be different from the original. Diagnosis: Malignant sacrococcygeal teratoma, germ cell Date of Last therapy: 05/20/05 Problem Noted Date Diagnosed Date DM (diabetes mellitus), secondary 10/15/2015 Hyperglycemia 03/17/2012 Overview (03/08/2014): hyperglycemia of uncertain cause, presumed to be chemotherapy-related. We first saw her for this 03/17/12. She had had a mildly elevated blood glucose on her annual CMP at [facility], and in follow-up on 03/12/12, her fasting blood glucose was 123 and hemoglobin A1c 6.6%. Urinary symptoms were hard to assess, given her distant history of a pelvic tumor, though she had had no glycosuria or ketonuria. At our visit on 03/17/12, C-peptide was 0.5, fasting blood glucose 123, hemoglobin A1c 6.7%, and GAD65 and IA2 autoantibodies were negative. In 06/07, her hemoglobin A1c was 7.0% and she had a fasting blood glucose of 129 in 07/07, when she was started on once-daily Lantus injections. She has done well since. She presented with anuria at age 1 and was found to have a sacro-coccygeal teratoma. Parents recall she was treated with bleomycin, cis-platin, and etoposide acutely, and then carbo-platin after surgical removal. All therapy was completed 05/18/2005. There has been no evidence of recurrence, but she has a neurogenic bladder requiring self-catheterization 5 times daily (in addition to urinating frequently), and she also requires daily laxative for normal bowel movements. Assessment & Plan (03/09/2014 9:36 AM CDT): 1) no changes 2) continue current therapies 3) return in [address] Sainz Carcinoma of sacrococcygeal region 10/20/2009 Teratoma 10/20/2009 Teratoma of sacrum Hearing loss Otitis media Neurogenic bladder Pyelonephritis Chemotherapy-induced diabetes mellitus Resolved Problems Problem Noted Date Diagnosed Date Resolved Date UTI (urinary tract infection) 04/18/2016 05/02/2016 UTI (urinary tract infection) 07/24/2015 08/07/2015 Immunizations Immunization Administration Dates Next Due INFLUENZA VACCINE, QUADR. (F LUZONE; FLULAVAL; FLUARIX; AFLURIA QUADRIVALENT; 6MO+), 0.5 ML (IIV4) 04/23/2020 Family History Medical History Relation Name Comments Other - Endocrine Father pre-DM Cancer Maternal Grandfather colon c ancer/leukemia Depression Mother ?30 Cancer Other aunt lung Cancer Paternal Grandfather lung Relation Name Status Comments Father Maternal Grandfather Mother Other aunt Paternal Grandfather Social History Tobacco Use Types Packs/Day Years Used Date Smoking Tobacco: Never Smokeless Tobacco: Never Tobacco Cessation:Counseling Given: No Alcohol Use Standard Drinks/Week Comments No 0 (1 standard drink = 0.6 oz pur e alcohol) Comments No Sex and Gender Information Value Date Recorded Sex Assigned at Not on file Legal Sex Female 5:42 AM CUSTOMS COMPLIANCE ANALYST Gender Identity Not on file Sexual Orientation Not on file Last Filed Vital Signs Vital Sign Reading Time Taken Comments Blood Pressure 100/70 07/02/2020 1:01 PM CUSTOMS COMPLIANCE ANALYST Pulse 92 06/29/2020 1:17 PM CUSTOMS COMPLIANCE ANALYST Temperature 36.5 C (97.7 F) 06/29/2020 1:17 PM CUSTOMS COMPLIANCE ANALYST Respiratory Rate 16 06/29/2020 1:17 PM CUSTOMS COMPLIANCE ANALYST Oxygen Saturation 100% 06/29/2020 1:17 PM CUSTOMS COMPLIANCE ANALYST Inhaled Oxygen Concentration - - Weight 56.7 kg (125 lb) 07/02/2020 1:01 PM CUSTOMS COMPLIANCE ANALYST Height 173 cm (5' 8.11) 07/02/2020 1:01 PM CUSTOMS COMPLIANCE ANALYST Body Mass Index 18.94 07/02/2020 1:01 PM CUSTOMS COMPLIANCE ANALYST Plan of Treatment Health Maintenance Due Date Last Done Comments HIV SCREENING 2018 HPV VACCINE (1 - 3-dose series) 2018 CHLAMYDIA/GONORRHEA SCREENING 2019 MENINGOCOCCAL (Group B) VACCINE SHARED DECISION-MAKING (1 of 2 - Standard) 2019 DIABETES-HGB A1C 10/10/2020 04/12/2020, , 07/01/2019, Additional history exists HEPATITIS C SCREENING 01/14/2021 DIABETES-FOOT EXAM WITH MONOFILAMENT 2021 DIABETES-SERUM CREATININE 05/10/20212019, 04/12/2020, 07/01/2019, Additional history exists DTAP/TDAP/TD VACCINES (1 - Tdap) 2022 HEPATITIS B VACCINE (1 of 3 - 19+ 3-dose series) 2022 DEPRESSION SCREENING 07/27/2024 DIABETES - URINE PROTEIN SCREENING 07/27/2024 05/10/2020, 08/22/2019, 03/16/2019, Additional history exists COVID-19 VACCINE (1 - season) 2025 INFLUENZA VACCINE (#1) 2025 04/23/2020 ZOSTER VACCINE (1 of 2) 2053 HIB VACCINE Aged Out No longer eligi ble based on patient's age to complete this topic MENINGOCOCCAL GROUPS A/C/Y/W VACCINE Aged Out No longer eligible based on patient's age to complete this topic PNEUMOCOCCAL VACCINE Aged Out No long er eligible based on patient's age to complete this topic Procedures Procedure Name Priority Date/Time Associated Diagnosis Comments PROTEIN CREATININE RATIO URINE RANDOM PNL Routine 05/10/2020 11:47 AM CDT Carcinoma of sacrococcygeal region COMPREHENSIVE METABOLIC PANEL Routine 05/10/2020 11:18 AM CDT Carcinoma of sacrococcygeal region Neurogenic dysfunction of the urinary bladder Neurogenic bladder Pyelonephritis Hyperglycemia DM (diabetes mellitus), secondary HEMOGLOBIN A1C - POCT INTERFACED Routine 04/12/2020 9:15 AM CDT from Last 3 Months or Most Recently Relevant to Health Maintenance Results * (ABNORMAL) PROTEIN CREATININE RATIO URINE RANDOM PNL (05/10/2020 11:47 AM CDT) Protein Urine 16.6(H) <=14 mg/dL 05/10/2020 12:35 PM CDT [facility] Creatinine Urine 171.93 mg/dL 05/10/2020 12:35 PM T [facility] Protein/Creatin ine Ratio Urine 0.10(H) <0.10 05/10/2020 12:35 PM T [facility] Urine URINE SPECIMEN OBTAINED BY CLEAN CATCH PROCEDURE / Unknown Collection / Unknown 05/10/2020 11:47 AM CDT 05/10/2020 11:51 AM CDT us Bindu Rivera MD LAB - URINE CHEMISTRY ORDERABLES Final Result Performing Organization Address City/State/[facility] Co de Phone Number [facility] [place] [address] * (ABNORMAL) COMPREHENSIVE METABOLIC PANEL (05/10/2020 11:18 AM CDT) Glucose 137(H) 70 - 105 mg/dL 05/10/2020 1:04 PM CDT [facility] Sodium 138 136 - 145 mmol/L 05/10/2020 1:04 PM CDT [facility] Potassium 4.0 3.5 - 5.1 mmol/L 05/10/2020 1:04 PM CDT [facility] Chloride 106 98 - 107 mmol/L 05/10/2020 1:04 PM CDT [facility] CO2 26 20 - 28 mmol/L 05/10/2020 1:04 PM CDT [facility] Calcium 9.18 9.08 - 10.48 mg/dL 05/10/2020 1:04 PM CDT [facility] Anion Gap 6 5 - 20 mmol/L 05/10/2020 1:04 PM CDT [facility] BUN 12.6 5.3 - 18.7 mg/dL 05/10/2020 1:04 PM [facility] Creatinine 0.74 0.61 - 1.07 mg/dL 05/10/2020 1:04 PM [facility] Alkaline Phosphatase 72(L) 100 - 390 U/L 05/10/2020 1:04 PM T [facility] ALT 11 8 - 65 U/L 05/10/2020 1:04 PM T [facility] AST 13 3 - 35 U/L 05/10/2020 1:04 PM [facility] Protein Total 7.6 6.3 - 8.2 gm/dL 05/10/2020 1:04 PM [facility] Albumin 4.6 3.3 - 4.9 gm/dL 05/10/2020 1:04 PM [facility] Bilirubin Total 0.4 0.3 - 1.2 mg/dL 05/10/2020 1:04 PM [facility] eGFR by MDRD 05/10/2020 1:04 PM [facility] Comment: eGFR calculations are not performed for children under 18 years old. eGFR by MDRD 05/10/2020 1:04 PM [facility] Comment: eGFR calculations are not performed for children under 18 years old. Blood BLOOD SPECIMEN / Unknown Lab Venipuncture / Unknown 05/10/2020 11:18 AM CDT 05/10/2020 12:27 PM CDT us Bindu Rivera MD LAB - CHEMISTRY ORDERABLES Final Result Performing Organization Address City/State/[facility] Co de Phone Number [facility] [address] [place] [address] * (ABNORMAL) HEMOGLOBIN A1C - POCT INTERFACED (04/12/2020 9:15 AM CDT) Hemoglobin A1C POCT 6.2(H) 3.4 - 6.1 % 04/12/2020 9:23 AM T [facility] Estimated Average Glucose 131 mg/dL 04/12/2020 9:23 AM T [facility] Blood BLOOD SPECIMEN / Unknown 04/12/2020 9:15 AM CDT 04/12/2020 9:23 AM CDT Donald Sainz MD LAB - POINT OF CARE ORDERABL ES Final Result [facility] [place] [address] from Last 3 Months or Most Recently Relevant to Health Maintenance Insurance ANTHEM ANTHEM ANTHEM Care Teams Master Steam Yacht Relationship Specialty Start Date End Date Jeremías Sparks MD [address] [address] PCP - General 02/14/11
--- OUTSIDE RECORDS SUMMARY | 2025-04-14 16:01 | XMS_ITS | Encounter Summary ---
Author Organization [facility] Address [address] [place] [address] Care Team Providers Care Business Developer Name Role Phone Jeremías Sparks MD Primary Care Provider [phone] Reason for Visit * Reason Comments Refill Request Encounter Details Date Type Department Care Team (Late st Contact Info) Description 11/12/2019 Refill [facility] Pediatrics - Diabetes Mgmt [address] [place] [id number] Donald Sainz MD [address] [place] [id number] Refill Request Social History Tobacco Use Types Packs/Day Years Used Date Smoking Tobacco: Never Smokeless Tobacco: Never Alcohol Use Standard Drinks/Week Comments No 0 (1 standard drink = 0.6 oz pur e alcohol) Comments No Sex and Gender Information Value Date Recorded Sex Assigned at Not on file Legal Sex Female 5:42 AM DIRECTOR OF CHANNEL MARKETING Gender Identity Not on file Sexual Orientation Not on file documented as of this encounter Plan of Treatment Not on file documented as of this encounter Visit Diagnoses Not on filedocumented in this encounter Care Teams Business Developer Relationship Specialty Start Date End Date Jeremías Sparks MD [address] [address] PCP - General 02/14/11 documented as of this encounter
--- OUTSIDE RECORDS SUMMARY | 2025-04-14 16:01 | XMS_ITS | Encounter Summary ---
Author Organization [facility] [employer] Address [address] [place] [address] Care Team Providers Care Picture Engraver Name Role Phone Jeremías Sparks MD Primary Care Provider [phone] Encounter Details Date Type Department Care Team (Late st Contact Info) Description 02/01/2019 Telephone [facility] Pediatrics - Diabetes [id number] [place] [address] Kamar Cox APRN-TRADITIONAL [facility] [address] [place] [id number] Social History Tobacco Use Types Packs/Day Years Used Date Smoking Tobacco: Never Smokeless Tobacco: Never Alcohol Use Standard Drinks/Week Comments No 0 (1 standard drink = 0.6 oz pur e alcohol) Comments No Sex and Gender Information Value Date Recorded Sex Assigned at Not on file Legal Sex Female 5:42 AM MICROSYSTEMS ENGINEER Gender Identity Not on file Sexual Orientation Not on file documented as of this encounter Miscellaneous Notes * Telephone Encounter - Beverley Schaffer RN - 02/01/2019 4:08 PM CDT Mother called and reported on voicemail that bgs were checked 01/16-01/21. Values ranged from 140-151. Will update Dr. Sainz. documented in this encounter Plan of Treatment Not on file documented as of this encounter Visit Diagnoses Not on filedocumented in this encounter Care Teams Picture Engraver Relationship Specialty Start Date End Date Jeremías Sparks MD [facility] [place] [address] PCP - General 02/14/11 documented as of this encounter
--- OUTSIDE RECORDS SUMMARY | 2025-04-14 16:01 | XMS_ITS | Encounter Summary ---
Author Organization [facility] [employer] Address [address] [place] [address] Care Team Providers Care Drawing Box Tender Name Role Phone Jeremías Sparks MD Primary Care Provider [phone] Reason for Visit * Reason Onset Date Comments Blood Sugar Problem 08/19/2012 Encounter Details Date Type Department Care Team (Late st Contact Info) Description 08/19/2012 Telephone [facility] Pediatrics - Diabetes Mgmt [address] [place] [id number] Donald Sainz MD [address] [place] [address] Blood Sugar Problem Social History Tobacco Use Types Packs/Day Years Used Date Smoking Tobacco: Never Assessed Alcohol Use Standard Drinks/Week Comments No 0 (1 standard drink = 0.6 oz pur e alcohol) Comments Unknown Sex and Gender Information Value Date Recorded Sex Assigned at Not on file Legal Sex Female 5:42 AM RETORT FURNACE HELPER Gender Identity Not on file Sexual Orientation Not on file documented as of this encounter Miscellaneous Notes * Telephone Encounter - Galen Newberry RN - 08/19/2012 3:03 PM CST I returned mom's call [phone] and (work) [phone], left messages to call me back. RT FURNACE HELPER documented in this encounter Plan of Treatment Not on file documented as of this encounter Visit Diagnoses Not on filedocumented in this encounter Care Teams Drawing Box Tender Relationship Specialty Start Date End Date Jeremías Sparks MD [address] [place] [address] PCP - General 02/14/11 documented as of this encounter
--- OUTSIDE RECORDS SUMMARY | 2025-04-14 16:01 | XMS_ITS | Encounter Summary ---
Author Organization [facility] Address [address] [facility] [place] [address] Care Team Providers Care Alcohol Still Operator Name Role Phone Jeremías Sparks MD Primary Care Provider [phone] Reason for Visit * Reason Comments Refill Request Encounter Details Date Type Department Care Team (Late st Contact Info) Description 04/15/2020 Refill [facility] Pediatrics - Endocrinology [address] [place] [address] Donald Sainz MD [address] [place] [phone] Refill Request Social History Tobacco Use Types Packs/Day Years Used Date Smoking Tobacco: Never Smokeless Tobacco: Never Alcohol Use Standard Drinks/Week Comments No 0 (1 standard drink = 0.6 oz pur e alcohol) Comments No Sex and Gender Information Value Date Recorded Sex Assigned at Not on file Legal Sex Female 5:42 AM SUPERVISOR MICROBIOLOGY TECHNOLOGISTS Gender Identity Not on file Sexual Orientation Not on file COVID-19 Exposure Response Date Recorded In the last month, have you been in contact with someone who was confirmed or suspected to have Coronavirus / COVID-19? No / Unsure 04/12/2020 8:28 AM CDT documented as of this encounter Plan of Treatment Not on file documented as of this encounter Visit Diagnoses Not on filedocumented in this encounter Care Teams Alcohol Still Operator Relationship Specialty Start Date End Date Jeremías Sparks MD [address] [place] [address] PCP - General 02/14/11 documented as of this encounter
--- OUTSIDE RECORDS SUMMARY | 2025-04-14 16:01 | XMS_ITS | Encounter Summary ---
Author Organization [facility] [employer] Address [address] [place] [address] Care Team Providers Care Tobacco Sieve Operator Name Role Phone Jeremías Sparks MD Primary Care Provider [phone] Encounter Details Date Type Department Care Team (Late st Contact Info) Description 07/06/2019 Telephone [facility] [employer] [facility] Pediatrics - Nephrology [address] [place] [phone] Bindu Rivera MD [address] [place] [id number] Social History Tobacco Use Types Packs/Day Years Used Date Smoking Tobacco: Never Smokeless Tobacco: Never Alcohol Use Standard Drinks/Week Comments No 0 (1 standard drink = 0.6 oz pur e alcohol) Comments No Sex and Gender Information Value Date Recorded Sex Assigned at Not on file Legal Sex Female 5:42 AM BUSINESS ACCOUNT EXECUTIVE Gender Identity Not on file Sexual Orientation Not on file documented as of this encounter Miscellaneous Notes * Telephone Encounter - Bindu Rivera MD - 07/06/2019 6:34 PM CST Labs from 02/2019: Vitamin D 47, T sat 34, ferritin 36, PTH 32, cystatin C 0.77 02/2019 Cystatin C level of 0.77 gives an estimated GFR of 98 ml/min/1.73M2 by the Creatinine-Cystatin C based CKiD equation (2011). Bedside Zayas equation (2009) 95 ml/min/1.73m2 (serum creatinine0.75).. Recent Labs Component Name 07/01/19 1401 03/16/19 1502 WBC 5.5 4.9 HGB 13.3 12.8 HCT 38.1 38.9 PLTCOUNT 309 288 Recent Labs Component Name 07/01/19 1401 03/16/19 1502 05/28/18 1453 SODIUM 138 137 138 POTASSIUM 4.1 3.9 4.3 CHLORIDE 107 103 106 CO2 20 27 20 BUN 15.6 15.3 14.3 CREATININE 0.70 0.75 0.65 GLUCOSE 119* 123* 125* CALCIUM 9.44 9.70 9.97 ALBUMIN 4.6 4.6 4.7 PHOS - 3.70 4.03 Recent Labs Component Name 07/01/19 1401 03/16/19 1500 COLORUA Yellow Yellow CLARITYUA Slt Cloudy* Clear SPECGRAVUA 1.024 1.012 PHUA 6.0 7.0 PROTEINUA 1+* Negative BLOODUA 2+* 1+* LEUKOCYTEUA Trace* Negative NITRITEUA Negative Negative GLUCOSEUA Negative 1+* KETONEUA Trace* Negative WBCUA 51-100* 11-20* RBCUA 21-50* 6-10* NESS ACCOUNT EXECUTIVE documented in this encounter Plan of Treatment Not on file documented as of this encounter Visit Diagnoses Not on filedocumented in this encounter Care Teams Tobacco Sieve Operator Relationship Specialty Start Date End Date Jeremías Sparks MD [address] [place] [address] PCP - General 02/14/11 documented as of this encounter
[2025-04-14 16:11] VITALS: BP 117/58; PULSE 88; RESP 18; TEMP 36.7; O2SAT 98
== END 2025-04-14 16:55 | disposition home or self-care (01) ==
PROVIDERS: Emergency Provider Nurse Practitioner
DX: M25.512 Pain in left shoulder (principal)
CPT/HCPCS: 99212; G0463